=== PATIENT | female | born 1960 | race Caucasian/White ===

== ENCOUNTER 2019-09-15 09:00 | Observation (INO) | payer BC ==
[~2019-09-15] VITALS: Ht 180.3 cm; Wt 104.6 kg
[2019-09-15] MEDS: LEVOTHYROXINE 100 MCG TABLET PO SCH (06:00)
[~2019-09-15 09:00] MED LIST: ACETAMINOPHEN 650 MG/20.3 ML UDC PO PRN; ATEN50TA41 PO; BISACODYL 10 MG SUPP PR PRN; CEFAZOLIN 1,000 MG ONE; DEXAMETHASONE 4 MG/ML, 1ML ONE; DIPHENHYDRAMINE 50 MG CAPSULE PO PRN; EPINEPHRINE 1 MG/ML, 1ML ONE; FENTANYL PF 250 MCG/5ML ONE; GABA300C10 PO; HYDR-3240 PO; HYDROmorphone 1 MG/ML, 1ML INJ IV PRN; KETOROLAC 60 MG/2 ML ONE; LEVO100T5 PO; MAGNESIUM HYDROXIDE 8%, 30ML UDC PO PRN; MIDAZOLAM 1 MG/ML, 2ML ONE; NAPR500T8 PO; ONDANSETRON 2MG/ML, 2ML IV PRN; ONDANSETRON 2MG/ML, 2ML ONE; ONDANSETRON ODT 4 MG PO PRN; OXYcodone IR 5MG TABLET PO PRN; PARO30TA3 PO; PROPOFOL 10 MG/ML, 20ML ONE; ROPIvacaine/PF 0.5%, 20 ML ONE; SCOPOLAMINE PATCH, 1.5MG PATCH.TD72 TD ONE; SENNA/DOCUSATE TABLET PO PRN; SIMV20TA3 PO; SODIUM CHLORIDE 0.9% 50 ML ONE; TRANEXAMIC ACID 100 MG/ML, 10ML ONE; VANCOMYCIN 1,000 MG ONE; ZOLPIDEM 5MG TABLET PO PRN
[2019-09-15] MEDS: ATENOLOL 50 MG TABLET PO SCH (09:00)
[2019-09-15] MEDS: PAROXETINE 10 MG TABLET PO SCH (09:00)
[2019-09-15] MEDS: DOCUSATE 100 MG CAPSULE PO SCH ×2 (09:00→19:54)
[2019-09-15] MEDS ORDERED: LACTATED RINGERS 1,000 ML IV SCH (09:36)
[2019-09-15] MEDS ORDERED: LIDOCAINE-MPF 1%, 2ML ONE (09:49)
[2019-09-15] MEDS ORDERED: ACETAMINOPHEN 500 MG TABLET PO ONE (10:00)
[2019-09-15] MEDS ORDERED: LIDOCAINE-MPF 1%, 2ML INFIL ONE (10:00)
[2019-09-15] MEDS ORDERED: GABAPENTIN 300 MG CAPSULE PO ONE (10:00)
[2019-09-15] MEDS ORDERED: ACETAMINOPHEN 500 MG TABLET ONE (10:01)
[2019-09-15] MEDS ORDERED: GABAPENTIN 300 MG CAPSULE ONE (10:02)
[2019-09-15] MEDS: GABAPENTIN 300 MG CAPSULE PO SCH ×3 (10:08→21:00)
[2019-09-15] MEDS ORDERED: LORazepam 2 MG/ML, 1ML IVPush PRN (12:00)
[2019-09-15] MEDS ORDERED: METOCLOPRAMIDE 5 MG/ML, 2ML IV PRN (12:00)
[2019-09-15] MEDS ORDERED: MEPERIDINE/PF 25MG/ML,1ML IVPush PRN (12:00)
[2019-09-15] MEDS ORDERED: ONDANSETRON 2MG/ML, 2ML IV PRN (12:00)
[2019-09-15] MEDS ORDERED: OXYcodone 5 MG/5 ML ORAL.SOL UDC PO PRN ×2 (12:00→13:30)
[2019-09-15] MEDS ORDERED: ROPIvacaine/PF 0.5%, 30 ML ONE (12:09)
[2019-09-15] MEDS ORDERED: EPINEPHRINE 1 MG/ML, 1ML ONE (12:09)
[2019-09-15] MEDS ORDERED: LIDOCAINE-MPF 2% ,5ML ONE (12:09)
[2019-09-15] MEDS ORDERED: OXYcodone 5 MG/5 ML ORAL.SOL UDC ONE (12:58)
[2019-09-15] MEDS ORDERED: MEPERIDINE/PF 25MG/ML,1ML ONE (12:58)
[2019-09-15] MEDS ORDERED: FENTANYL PF 100 MCG/2ML ONE ×2 (12:58→13:30)
[2019-09-15] MEDS: FENTANYL PF 100 MCG/2ML IV PRN ×4 (13:01→13:36)
[2019-09-15] MEDS ORDERED: HYDROmorphone 1 MG/ML, 1ML VIAL ONE (13:10)
[2019-09-15] MEDS: HYDROmorphone 2 MG/ML, 1ML IVPush PRN ×2 (13:16→13:21)
[2019-09-15] MEDS ORDERED: LORazepam 2 MG/ML, 1ML ONE (13:25)
[2019-09-15] MEDS ORDERED: HYDROmorphone 1 MG/ML, 1ML INJ IV PRN (15:00)
[2019-09-15] MEDS ORDERED: CEFAZOLIN 2,000 MG in SODIUM CHLORIDE 0.9% 50 ML IVPB SCH (16:00)
[2019-09-15] MEDS: NS + 20MEQ KCL 1,000 ML IV SCH (17:07)
[2019-09-15] MEDS: ASPIRIN 81 MG TABLET EC PO SCH (17:08)
[2019-09-15 19:02] VITALS: BP 106/73
[2019-09-15] MEDS: CEFAZOLIN 2,000 MG in SODIUM CHLORIDE 0.9% 50 ML IVPB SCH (19:54)
[2019-09-15] MEDS: HYDROcodone/APAP 5/325 TABLET PO PRN (21:00)
[2019-09-15] MEDS ORDERED: SIMVASTATIN 20 MG TABLET PO SCH (21:00)
[2019-09-16 01:05] VITALS: BP 101/61
[2019-09-16] MEDS: HYDROcodone/APAP 5/325 TABLET PO PRN ×3 (01:16→10:57)
[2019-09-16] MEDS: NS + 20MEQ KCL 1,000 ML IV SCH (04:30)
[2019-09-16] MEDS: CEFAZOLIN 2,000 MG in SODIUM CHLORIDE 0.9% 50 ML IVPB SCH (04:35)
[2019-09-16] MEDS: ASPIRIN 81 MG TABLET EC PO SCH (04:36)
[2019-09-16] MEDS: LEVOTHYROXINE 100 MCG TABLET PO SCH (04:37)
[2019-09-16] MEDS ORDERED: DEXAMETHASONE 4 MG/ML, 1ML IVPush SCH (06:00)
[2019-09-16 08:46] VITALS: BP 112/70
[2019-09-16] MEDS: DOCUSATE 100 MG CAPSULE PO SCH (08:53)
[2019-09-16] MEDS: PAROXETINE 10 MG TABLET PO SCH (08:53)
[2019-09-16] MEDS: ATENOLOL 50 MG TABLET PO SCH (08:53)
[2019-09-16] MEDS: GABAPENTIN 300 MG CAPSULE PO SCH (08:53)
[2019-09-16] MEDS ORDERED: OXYC5TAB3 PO (09:36)
[2019-09-16] MEDS ORDERED: TRAM50TA2 PO (09:37)
[2019-09-16] MEDS ORDERED: MELO7.5T31 PO (09:37)
[2019-09-16] MEDS ORDERED: ASPI81TA45 PO (09:38)
== END 2019-09-16 11:35 | disposition home or self-care (01) ==
LOC: OUT 09:00 → 4NE 14:17 → OUT 23:02 → 4NE 23:03 → DCLOUNGE 09-16 11:22
PROVIDERS: ADMIT Orthopaedic Surgery; ATTEND Orthopaedic Surgery
DX: M17.12 Unilateral primary osteoarthritis, left knee (principal); E03.9 Hypothyroidism, unspecified; E78.5 Hyperlipidemia, unspecified
CPT/HCPCS: 27447; 36415; 85014; 85018; 96365; 96366; 96375; 97110; 97161; 97165; C1713; C1776; G0378; J0171; J0690; J1100; J1170; J1885; J2060; J2175; J2250; J2405; J2704; J2795; J3010; J3370; J3480; J3490; J7120

== ENCOUNTER 2019-11-11 12:40 | Outpatient (CLI) | payer BC ==
[~2019-11-11 12:40] MED LIST changes: -ACETAMINOPHEN 650 MG/20.3 ML UDC PO PRN; +ASPI81TA45 PO; -BISACODYL 10 MG SUPP PR PRN; -CEFAZOLIN 1,000 MG ONE; -DEXAMETHASONE 4 MG/ML, 1ML ONE; -DIPHENHYDRAMINE 50 MG CAPSULE PO PRN; -EPINEPHRINE 1 MG/ML, 1ML ONE; -FENTANYL PF 250 MCG/5ML ONE; -HYDROmorphone 1 MG/ML, 1ML INJ IV PRN; -KETOROLAC 60 MG/2 ML ONE; -MAGNESIUM HYDROXIDE 8%, 30ML UDC PO PRN; +MELO7.5T31 PO; -MIDAZOLAM 1 MG/ML, 2ML ONE; -ONDANSETRON 2MG/ML, 2ML IV PRN; -ONDANSETRON 2MG/ML, 2ML ONE; -ONDANSETRON ODT 4 MG PO PRN; +OXYC5TAB3 PO; -OXYcodone IR 5MG TABLET PO PRN; -PROPOFOL 10 MG/ML, 20ML ONE; -ROPIvacaine/PF 0.5%, 20 ML ONE; -SCOPOLAMINE PATCH, 1.5MG PATCH.TD72 TD ONE; -SENNA/DOCUSATE TABLET PO PRN; -SODIUM CHLORIDE 0.9% 50 ML ONE; +TRAM50TA2 PO; -TRANEXAMIC ACID 100 MG/ML, 10ML ONE; -VANCOMYCIN 1,000 MG ONE; -ZOLPIDEM 5MG TABLET PO PRN
== END 2019-11-11 23:59 | disposition home or self-care (01) ==
LOC: STAR 12:40
PROVIDERS: ATTEND Orthopaedic Surgery
DX: Z02.9 Encounter for administrative examinations, unspecified (principal)

== ENCOUNTER 2019-11-19 07:31 | Observation (INO) | payer BC ==
[~2019-11-19] VITALS: Ht 180.3 cm; Wt 106.7 kg
[~2019-11-19 07:31] MED LIST changes: +ACETAMINOPHEN 650 MG/20.3 ML UDC PO PRN; +BISACODYL 10 MG SUPP PR PRN; +DIPHENHYDRAMINE 50 MG CAPSULE PO PRN; +EPINEPHRINE 1 MG/ML, 1ML ONE; +HYDROcodone/APAP 5/325 TABLET PO PRN; +HYDROmorphone 1 MG/ML, 1ML INJ IV PRN; +KETOROLAC 60 MG/2 ML ONE; +MAGNESIUM HYDROXIDE 8%, 30ML UDC PO PRN; +ONDANSETRON 2MG/ML, 2ML IV PRN; +ONDANSETRON 4 MG TABLET PO PRN; +ROPIvacaine/PF 0.5%, 20 ML ONE; +SCOPOLAMINE PATCH, 1.5MG PATCH.TD72 TD ONE; +SENNA/DOCUSATE TABLET PO PRN; +SODIUM CHLORIDE 0.9% 50 ML ONE; +TRANEXAMIC ACID 100 MG/ML, 10ML ONE; +VANCOMYCIN 1,000 MG ONE; +ZOLPIDEM 5MG TABLET PO PRN
[2019-11-19] MEDS ORDERED: LACTATED RINGERS 1,000 ML IV SCH (07:48)
[2019-11-19] MEDS ORDERED: GABAPENTIN 300 MG CAPSULE PO ONE (08:00)
[2019-11-19] MEDS ORDERED: ACETAMINOPHEN 500 MG TABLET PO ONE (08:00)
[2019-11-19] MEDS ORDERED: MIDAZOLAM 1 MG/ML, 2ML ONE (08:38)
[2019-11-19] MEDS ORDERED: FENTANYL PF 250 MCG/5ML ONE (08:38)
[2019-11-19] MEDS: GABAPENTIN 300 MG CAPSULE PO SCH ×3 (09:00→20:28)
[2019-11-19] MEDS: PAROXETINE 10 MG TABLET PO SCH (09:00)
[2019-11-19] MEDS: DOCUSATE 100 MG CAPSULE PO SCH ×2 (09:00→20:27)
[2019-11-19] MEDS: ATENOLOL 50 MG TABLET PO SCH (09:00)
[2019-11-19] MEDS: LEVOTHYROXINE 100 MCG TABLET PO SCH (09:00)
[2019-11-19] MEDS ORDERED: PHENYLEPHRINE 10 MG/ML ONE (09:22)
[2019-11-19] MEDS ORDERED: MEPERIDINE/PF 50 MG/ML ONE (09:22)
[2019-11-19] MEDS ORDERED: DEXAMETHASONE 4 MG/ML, 1ML ONE (09:52)
[2019-11-19] MEDS ORDERED: EPINEPHRINE 1 MG/ML, 1ML ONE (09:52)
[2019-11-19] MEDS ORDERED: BUPIVACAINE/PF 0.25% ONE (09:52)
[2019-11-19] MEDS ORDERED: ROCURONIUM 10MG/ML,5ML ONE (09:52)
[2019-11-19] MEDS ORDERED: WATER-INJECTION,STERILE 10 ML IV ONE (09:52)
[2019-11-19] MEDS ORDERED: CEFAZOLIN 1,000 MG ONE (09:52)
[2019-11-19] MEDS ORDERED: LIDOCAINE-MPF 2% ,5ML ONE (09:52)
[2019-11-19] MEDS ORDERED: PROPOFOL 10 MG/ML, 20ML ONE (09:52)
[2019-11-19] MEDS ORDERED: ONDANSETRON 2MG/ML, 2ML ONE (09:52)
[2019-11-19] MEDS ORDERED: HYDROmorphone 2 MG/ML, 1ML IVPush PRN (10:00)
[2019-11-19] MEDS ORDERED: METHOCARBAMOL 1,000 MG in DEXTROSE 5% 100 ML IV PRN (10:00)
[2019-11-19] MEDS ORDERED: OXYcodone 5 MG/5 ML ORAL.SOL UDC PO PRN (10:00)
[2019-11-19] MEDS ORDERED: MEPERIDINE/PF 25MG/ML,1ML IVPush PRN (10:00)
[2019-11-19] MEDS ORDERED: PROMETHAZINE 25 MG/ML, 1ML IV PRN (10:00)
[2019-11-19] MEDS ORDERED: hydrALAzine 20 MG/ML, 1ML IV PRN (10:00)
[2019-11-19] MEDS ORDERED: ALBUTEROL/IPRATROPIUM 2.5MG/0.5MG, 3 ML NEB STA (10:57)
[2019-11-19] MEDS ORDERED: FENTANYL PF 100 MCG/2ML ONE (11:18)
[2019-11-19] MEDS: FENTANYL PF 100 MCG/2ML IV PRN ×3 (11:21→11:36)
[2019-11-19] MEDS ORDERED: METHOCARBAMOL 1,000 MG in DEXTROSE 5% 100 ML IV ONE (11:30)
[2019-11-19] MEDS ORDERED: HYDROmorphone 1 MG/ML, 1ML INJ ONE (11:34)
[2019-11-19 12:30] VITALS: BP 97/63
[2019-11-19] MEDS ORDERED: MEPERIDINE/PF 100 MG/ML ONE (12:42)
[2019-11-19] MEDS: OXYcodone IR 5MG TABLET PO PRN ×2 (13:03→20:27)
[2019-11-19] MEDS: NS + 20MEQ KCL 1,000 ML IV SCH (16:00)
[2019-11-19] MEDS ORDERED: CEFAZOLIN 2,000 MG in SODIUM CHLORIDE 0.9% 50 ML IVPB SCH (18:00)
[2019-11-19] MEDS: ASPIRIN 81 MG TABLET EC PO SCH (18:33)
[2019-11-19 19:36] VITALS: BP 96/61
[2019-11-19] MEDS ORDERED: SIMVASTATIN 20 MG TABLET PO SCH (21:00)
[2019-11-19] MEDS: CEFAZOLIN 2,000 MG in SODIUM CHLORIDE 0.9% 50 ML IVPB SCH (22:41)
[2019-11-19] MEDS ORDERED: CEFAZOLIN 2,000 MG in SODIUM CHLORIDE 0.9% 50 ML IV SCH (23:00)
[2019-11-20 00:04] VITALS: BP 91/56
[2019-11-20] MEDS: OXYcodone IR 5MG TABLET PO PRN ×3 (01:07→10:48)
[2019-11-20 04:00] VITALS: BP 90/55
[2019-11-20] MEDS: NS + 20MEQ KCL 1,000 ML IV SCH (04:30)
[2019-11-20] MEDS ORDERED: DEXAMETHASONE 4 MG/ML, 1ML IVPush SCH (06:00)
[2019-11-20] MEDS: ASPIRIN 81 MG TABLET EC PO SCH (06:12)
[2019-11-20] MEDS: CEFAZOLIN 2,000 MG in SODIUM CHLORIDE 0.9% 50 ML IVPB SCH (06:15)
[2019-11-20 07:48] VITALS: BP 92/58
[2019-11-20 08:05] VITALS: BP 100/53
[2019-11-20] MEDS: ATENOLOL 50 MG TABLET PO SCH (08:06)
[2019-11-20] MEDS: LEVOTHYROXINE 100 MCG TABLET PO SCH (08:06)
[2019-11-20] MEDS: GABAPENTIN 300 MG CAPSULE PO SCH (08:07)
[2019-11-20] MEDS: DOCUSATE 100 MG CAPSULE PO SCH (08:07)
[2019-11-20] MEDS: PAROXETINE 10 MG TABLET PO SCH (08:07)
[2019-11-20 12:51] VITALS: BP 96/58
[2019-11-20 14:28] VITALS: BP 106/67
== END 2019-11-20 14:50 | disposition home or self-care (01) ==
LOC: OR 07:31 → 4NE 12:27 → OR 21:55 → INTOOBSV 21:56 → 4NE 21:56 → DCLOUNGE 11-20 14:41
PROVIDERS: ADMIT Orthopaedic Surgery; ATTEND Orthopaedic Surgery
DX: M17.11 Unilateral primary osteoarthritis, right knee (principal); I10 Essential (primary) hypertension; E03.9 Hypothyroidism, unspecified; E78.5 Hyperlipidemia, unspecified; Z79.899 Other long term (current) drug therapy
CPT/HCPCS: 27447; 36415; 85014; 85018; 93005; 96365; 96366; 96375; 97163; C1713; C1776; G0378; J0171; J0690; J1100; J1170; J1885; J2175; J2250; J2370; J2405; J2704; J2795; J2800; J3010; J3370; J3490